=== PATIENT | male | born 1945 | race Caucasian/White ===

== ENCOUNTER 2017-01-29 17:45 | Emergency (ER) | payer MEDICARE, OTHER ==
[~2017-01-29] VITALS: Ht 180.3 cm; Wt 103.4 kg
--- NOTE | 2017-01-29 18:09 | Emergency Room Report ---
See Addendum History of Present Illness Time Seen by 180Gladis Presenting Problem in Triage Pt arrived:Walked Presenting Problem:PATIENT REPORTS KNEE PAIN FOR A MONTH, REPORTS ITS WORST TONIGHT. PATIENT NOTED TO HAVE VISBILE MUSCLE SPASMS BELOW KNEE. RIGHT KNEE ELEVATED. EMS GAVE 50MCG FENTANYL. PATIENT REPORTS HE HAS ARTHRITIS. 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 N Clinical Suspician of Infection? N Mental Status: 1 - Regular (Normal Baseline) Sepsis Risk:Low Sepsis Risk Have you (or family members/close friends) recently traveled outside the [place]? N If Yes, where/when: Have you had exposure to infectious disease within the past month? TB? Other? Specify: ALLERGIES Coded Allergies: No Known Allergies (01/29/17) Home Medications Reported Medications Sertraline Hcl (Zoloft 50MG) 50 MG PO QHS Aspirin 25/Dipyridamole 200MG (Aggrenox 25 MG-200 MG Capsule) 1 CAPSULE PO BID Atenolol (Atenolol) 125 MG PO QHS Temazepam (Temazepam 30MG) 30 MG PO QHS #30 CAP ROPINIROLE HCL (Ropinirole 0.25MG) 1 TAB PO TID POTASSIUM CHL (Potassium Chloride) 20 MEQ PO BID Amlodipine Besylate (Amlodipine) 5 MG PO DAILY #30 Chlorthalidone 25 MG PO DAILY #30 Atorvastatin Calcium 20 MG PO DAILY #30 Pantoprazole Sodium 40 MG PO DAILY #30 Gabapentin 300 MG PO BID #30 Temazepam (Restoril 15MG) 15 MG PO QHS Carbidopa/Levodopa (Carbidopa-Levodopa 10-100 Tab) 1 TAB PO TID #90 History Medical History General CAD? No Angina: No FL: No Hypertension? Yes Hyperlipidemia? No CHF? No DVT? No PE? No COPD? No Asthma? Yes Anemia? No GERD? No Gastric ulcers? No GI Bleed? No Hernia? Yes Thyroid Problems? No Hypothyroidism? No CVA? Yes Seizures? No Diabetes? No Renal Insuffiency? No End Stage Renal Disease? No UTI? No Stones? No BPH? No GB Disease: Yes Nephritic Syndrome? No Asplenia? No Hepatitis? No Sickle Cell Disease? No Arthritis? No Migraines? No Cataracts? No Glaucoma? No MRSA? No HIV? No TB? No Anxiety? No Depression? No Cancer? No More? No Immunization Hx DT/Tetanus > 10 YRS Flu 2YRSorMore Pneumonia 05/30/10 Surgical Hx Previous Surgery?Y LEFT KNEE Appendix Gallbladd ANGIOPLASTY BACK SX- JANUARY 2010 Family History Family Hx Diabetes Yes CAD No Hypertension Yes Hyperlipidemia No Cancer Yes TB No Social History Smoking Hx Smoker: Never Smoker Tobacco: No Alcohol Alcohol: No Review of Systems All Other Systems Reviewed and Negative Physical Exam Vital Signs Vital Signs Date Time Temp Pulse Resp B/P Pulse O2 O2 Flow FiO2 Ox Delivery Rate 01/29 1944 67 14 139/102 95 01/29 1845 77 20 136/71 96 01/29 1748 97.9 72 20 147/84 96 General Appearance normal appearance, WD/WN Respiratory Status No: respiratory distress. 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 Yes Aleksey was queried for this patient? Yes Reference #: [id number] Risks/benefits of using a controlled substance for treatment were not discussed w/pt Results/Orders Laboratory Tests 01/29/17 1802: Sodium 142, Potassium 3.9, Chloride 104, Carbon Dioxide 32, BUN 16, Creatinine 1.2, Estimated Creat Clear 80, Estimated GFR (MDRD) 59, Glucose 103, Uric Acid 5.9, Calcium 9.1, Total Bilirubin 0.7, AST 19, ALT 28, Alkaline Phosphatase 130 H, Total Protein 7.0, Albumin 3.5, Globulin 3.5 H, Albumin/Globulin Ratio 1.0 L, WBC 8.8, RBC 4.82, Hgb 15.6, Hct 46.6, MCV 96.7, RDW 13.3, Plt Count 232, MPV 8.1, Gran % 62.6, Gran # 5.5, Lymphocytes % 25.7, Monocytes % 6.3, Eosinophils % 4.8, Basophils % 0.5, Lymphocytes # 2.3, Monocytes # 0.6, Eosinophils # 0.4, Basophils # 0.1, PUBS MCHC 33.5, ESR 14, MCH 32.4 H Current Medication Orders Sig/Meir Start time Last Medication Dose Route Stop Time Status Admin Morphine Sulfate 4 MG ONCE ONE 01/30 2000 AC IV 01/29 2001 Ondansetron HCl 4 MG ONCE ONE 01/30 2000 AC IV 01/29 2001 Orders Procedure Date/time Status KUB (SINGLE VIEW) 01/29 1825 Active KNEE-3 VIEWS-RT 01/29 1800 Active URIC ACID 01/29 1757 Complete SED RATE 01/29 1757 Complete CBC WITH AUTO DIFF 01/29 1757 Complete CHEM 12 PROFILE 01/29 1757 Complete Departure Departure Time of Disposition 1950 Disposition DC Home or Self Care(routine) Clinical Impression Primary Impression: Low back pain with right-sided sciatica Qualifiers: Chronicity: acute Back pain laterality: right Qualified Code: M54.41 - Lumbago with sciatica, right side Secondary Impressions: Right knee pain Qualifiers: Chronicity: acute Qualified Code: M25.561 - Pain in right knee Condition STABLE Referrals Mary Beth De La Rosa MD (Family): 2 Days-Call Office Patient Instructions DI for Low Back Pain, Low Back Pain Additional Instructions Use meds as directed and followup with Dr. De La Rosa as needed. Discharge Counseling Counseled pt/family regarding diagnosis, test results, medications/RX, home care, follow up needs Prescriptions Current Visit Scripts HYDROCODONE 5MG/APAP 325MG (Hydrocodon-Acetaminophen 5-325) 1 TAB PO Q4HP PRN pain #18 TAB Methocarbamol (Robaxin 500MG) 500 MG PO Q8H #60 TAB ED Critical Care Critical Care No If Critical Care minutes are documented, the time involved in the performance of seperately reportable procedures was not counted toward critical care time documented. I directly delivered medical care to this critically ill and/or injured patient. Timely evaluation and treatment was necessary to address the significant organ system(s) dysfunction present in this patient. at 1957
[2017-01-29 18:17] LABS: HEMOGLOBIN 15.6 g/dL (14.1-18.0); LYMPH # 2.3 K/mm3 (0.7-4.5); LYMPH % 25.7 % (10-50)
[2017-01-29 20:12] VITALS: BP 92/61
--- NOTE | 2017-01-29 22:33 | RADIOLOGY REPORT PS360 ---
KNEE-3 VIEWS-RT portable HISTORY: PAIN pain central portion right knee Patient Age: 71 years: Male Ordering Physician: Alyx Green MD TECHNIQUE: Portable 3 views right knee AP lateral and crosstable lateral view. COMPARISON : FINDINGS Minimal Joint effusion suprapatella bursa . Narrowing of the medial compartment reflecting degenerative arthritic changes most evident here, followed by narrowed patellofemoral joint. Narrowing patellofemoral joint with sclerosis here as well as both sides medial compartment. Question suspect osteochondral irregularity developing at the medial femoral condyle: . Tricompartmental marginal osteophytes,. Bones well mineralized.. . IMPRESSION 1. Degenerative changes at the right knee Joint space narrowing & arthritic changes Most evident at medial compartment, followed by patellofemoral joint. . Tricompartmental marginal osteophytes. Question/suspect modest developing osteochondral irregularity at medial femoral condyle weightbearing surface 2. Moderate joint effusion 3. No fracture
--- NOTE | 2017-01-29 22:43 | RADIOLOGY REPORT PS360 ---
KUB (SINGLE VIEW) HISTORY: constipation Patient Age: 71 years: Male Ordering Physician: Alyx Green MD TECHNIQUE: Supine abdomen portable COMPARISON :Acute abdominal series from June 2010 FINDINGS A prominent gas is seen at the right colon. Moderate gaseous distention of cecum, right colon as well as I believe redundant proximal transverse colon. There appears be prominent stool at the hepatic flexure and some portions of transverse colon. Moderate generous stool is seen throughout the right colon along with a gas. . generous stool seen at the left descending colon as well as rectosigmoid. Findings may reflect mild constipation.. I would also note there is small bowel gas with borderline gaseous distention which could reflect ileus or possibly mild partial obstruction from the generous stool in colon. Stimulator device projected above the left iliac bone and with leads to the spine and appears to stimulator device at the lower T-spine lower T-spine . Levoscoliosis lower lumbar spine with disc space narrowing and vacuum phenomena most notable at L3/4. Slight loss of height of L4 to the right. Generous marginal osteophytes. Extensive laminectomy from L2 through S1 again noted IMPRESSION: . Moderate Gaseous distention of the right and proximal transverse colon,. With Generous stool throughout large bowel particularly evident from hepatic flexure through transverse colon to rectosigmoid.. Findings suggestive of likely mild/moderate constipation Generous gas throughout small bowel Levoscoliosis and Degenerative changes lumbar with extensive laminectomy lower L-spine. Neurostimulator device in place
--- OUTSIDE RECORDS SUMMARY | 2017-02-08 23:30 | External Medical Summary Rpt | CCD ---
Author Author [employer] Organization [employer] Address Unknown Phone Unavailable Purpose Continuity of Care Document - through 2016
--- OUTSIDE RECORDS SUMMARY | 2017-02-08 23:30 | External Medical Summary Rpt | CCD ---
Author Author , CHERRY CAREY Address Unknown Phone [email or web address] Name Relationship Address Phone LETICIA Next Of Kin [address] [place], [place] [phone] Purpose Continuity of Care Document - 09-28-2012 through 2016 Allergies, Adverse Reactions, Alerts Type Allergy to substance Adverse Reaction to Substance Substance Reaction Severity INGREDIENT: NO KNOWN Unknown Unknown - NO KNOWN DRUG ALLERGY Medications Na ND Rx Da Fi Fi Am Da Di Ph RX Ph St me C No te ll ll ou ys ag ar # ys at rm s nt no ma ic us Or Da si cy ia de te s n re d SO 00 05 0 No DI 40 -3 UM 97 1- Lo 98 20 ng CH 30 13 er LO 9 RI Ac DE ti ve 0. 9% SO ALMA TI ON FU 17 05 0 No L- 47 -3 GL 80 1- Lo O 40 20 ng 1 40 13 er MG 1 Ac OP ti TH ve ST RI PS KINSEY 24 05 0 No LF 20 -3 AC 80 1- Lo ET 67 20 ng AM 00 13 er ID 4 E Ac 10 ti % ve EY E DR OP S Te 58 05 0 No tr 76 -3 ac 80 1- Lo ai 78 20 ng ne 71 13 er 2 0. Ac 5% ti ve Op ht h So ln 2M L Vital Signs 09-28-2012 21:01 Name Value Interpretat Reference Comment ion Range BP 111 mm[Hg] Diastolic BP Systolic 158 mm[Hg] Heart 59 /min Rate/Pulse O2% 98 % Respiratory 20 /min Rate 09-28-2012 20:23 Name Value Interpretat Reference Comment ion Range BP 99 mm[Hg] Diastolic BP Systolic 162 mm[Hg] Heart 60 /min Rate/Pulse O2% 98 % Respiratory 20 /min Rate Encounters Encounter Start End Date Code Location Performer Type Date Emergency EDWARD Tillman MD (ER) 3 19:39 3 21:01 [facility]
--- OUTSIDE RECORDS SUMMARY | 2017-02-08 23:30 | External Medical Summary Rpt | CCD ---
Demographics Preferred Language Hebrew Marital Status Unknown Samaritan Affiliation Unknown Race Unknown Ethnic Group Unknown Author Author , NOE CAREY Address Unknown Phone Immunization Unable to retrieve immunization data due to connection failure with Immunization Registry. Please try again later.
--- OUTSIDE RECORDS SUMMARY | 2017-02-08 23:30 | External Medical Summary Rpt ---
Author Author CHERRY Alvarez, [employer]ERRY [employer] Organization [employer] Address Unknown Phone Unavailable
--- OUTSIDE RECORDS SUMMARY | 2017-02-08 23:30 | External Medical Summary Rpt | CCD ---
Author Author , CHERRY CAREY Address Unknown Phone [email or web address] Name Relationship Address Phone LETICIA Next Of Kin [address] [place], [place] [phone] Purpose Continuity of Care Document - 09-28-2012 [...] Tillman MD (ER) 3 19:39 3 21:01 [facility]
--- OUTSIDE RECORDS SUMMARY | 2017-02-08 23:30 | External Medical Summary Rpt | CCD ---
Demographics Preferred Language Polish Marital Status Unknown Orthodox Affiliation Unknown Race Unknown Ethnic Group Unknown Author Author , NOE CAREY Address Unknown Phone Immunization Unable to retrieve immunization data due to connection failure with Immunization Registry. Please try again later.
== END 2017-01-29 20:13 | disposition home or self-care (01) ==
LOC: ER 17:45
PROVIDERS: Emergency Medicine
DX: M54.41 Lumbago with sciatica, right side (principal); M25.561 Pain in right knee; K59.00 Constipation, unspecified; I10 Essential (primary) hypertension; J45.909 Unspecified asthma, uncomplicated; Z79.82 Long term (current) use of aspirin